=== PATIENT | female | born 1935 | race Asian ===

== ENCOUNTER 2023-09-12 23:41 | Inpatient (IN) | payer MEDICARE, BC, SELFPAY ==
[2023-09-12] VITALS (13 sets, daily range): BP systolic 126–183; BP diastolic 78–110; BMI 24.9
--- NOTE | 2023-09-12 21:08 | ED.MUSCINJ ---
HPI-Injury
<JORGE Gross - Last Filed: 09/13/23 01:03>
General
Chief Complaint: Musculo-Skeletal Complaint
Source: patient and family (Daughter)
Exam Limitations: none
Time Seen by Provider: 09/12/23 20:54
Travel History
Have you had any contact with someone who has COVID-19?: No
Do you have any symptoms of coronavirus? Fever > 100 degrees, chills, cough, shortness of breath, sore throat, loss of taste or smell, muscle aches, or headache?: No
History of Present Illness-Injury
Is this injury a work related problem?: No
Is pt an associate of [facility]?: No
Initial Injury comments:
This is a 88 year old female that comes in with c/o bilateral wrist pain. States that her shoe got caught and she fell forward. States that she put her arms out to prevent her from hitting her head. States that she did not hit her head or have any
LOC. State that the left wrist is worse then the right but both hurt. Denies any fever, chills, chest pain, SOB, abd pain, nausea, vomiting, diarrhea, headache, dizziness, urinary burning.
Past History
<JORGE Gross - Last Filed: 09/13/23 01:03>
Past History
ED Past Medical History: HTN and Other (Low back pain, Osteoporotis)
ED Past Surgical History: Appendectomy, Orthopedic (Bilateral hip replacement, ) and Other (Bilateral cataracts, )
Social History
Tobacco: Non-smoker
Alcohol: None
Personal:
Living: alone
Review of Systems
<JORGE Gross - Last Filed: 09/13/23 01:03>
Review of Systems
All Other Systems: ROS reviewed and negative except as documented in HPI and ROS
Constitutional: Reports no symptoms; Denies fever or chills
EENT: Reports no symptoms
Respiratory: Reports no symptoms; Denies cough or trouble breathing
Cardiac: Reports no symptoms; Denies chest pain
ABD/GI: Reports no symptoms; Denies abdominal pain, nausea, vomiting or diarrhea
: Reports no symptoms; Denies dysuria, frequency or urgency
Musculoskeletal: Reports joint pain (Right and left wrist pain)
Skin: Reports no symptoms
Neurological: Reports no symptoms; Denies dizzy or headache
Psychiatric: Reports no symptoms
Musculoskeletal Injury Exam
<JORGE Gross - Last Filed: 09/13/23 01:03>
Musculoskeletal Injury Exam
Right Wrist:
Pain with Movement?: Moderate
Tender to palpation?: Moderate
Soft tissue swelling?: Mild
External deformity and angulation?: Mild
Joint effusion?: None
Contusion?: None
Hematoma-local bleeding into tissue?: None
Strain- Sprain- Tear (Connective tissue injury)?: None
Crepitus with movement?: No
Malalignment/deformity?: Yes (Slight)
Range of motion: Limited (Due to pain)
Distal skin color and temperature: normal-warm & good color
Capillary Refill: normal
Normal distal neurovascular exam?: Yes
Left Wrist:
Pain with Movement?: Moderate
Tender to palpation?: Moderate
Soft tissue swelling?: Mild
External deformity and angulation?: Moderate
Joint effusion?: None
Contusion?: None
Hematoma-local bleeding into tissue?: None
Strain- Sprain- Tear (Connective tissue injury)?: None
Crepitus with movement?: No
Joint instability?: Yes
Malalignment/deformity?: Yes
Range of motion: Limited
Distal skin color and temperature: normal-warm & good color
Capillary Refill: normal
Normal distal neurovascular exam?: Yes
Phy Exam
<JORGE Gross - Last Filed: 09/13/23 01:03>
General Physical Exam
General Presentation: mild distress
General age: appears stated age
General Skin: warm and dry
General Habitus: elderly
General Mental: alert
General Hydration: appears well hydrated
ENT Exam
ENT Exam: TM's normal, pharynx normal and neck supple
Eye Exam
Eye Exam: EOMI
Cardiovascular Exam
Cardiovascular Exam: regular rate/rhythm, no edema and normal peripheral pulses
Pulmonary Exam
Pulmonary Exam: lungs clear, no respiratory distress, no rales, chest non tender, no crackles, no rhonchi, no wheezing and no cough
Gastrointestinal Exam
Gastrointestinal Exam: normal bowel sounds, non tender, soft, no organomegaly, no pulsatile mass and non distended
Musculoskeletal Exam
Musculoskeletal Exam: other (Bilateral wrist deformity. Left >R.)
Skin Exam
Skin Exam: normal color, warm/dry, no rash, no petechia and other (Small open area on the left wirst on the lateral aspect. )
Psychiatric Exam
Psychiatric Exam: normal mood/affect
Injury Course
<JORGE Gross - Last Filed: 09/13/23 01:03>
Orders/Labs/Results
Orders:
Orders
09/12/23 21:07
CR Wrist - Left Min 2 Views Urgent
Reason For Exam: Fall, Deformity, pain
Wrist, Right 3 Views [CR Wrist - Right Min 3 Views] Urgent
Comment:
Reason For Exam: Fall, Deformiaty
09/12/23 21:09
Morphine Sulfate 2 mg IV NOW STA
Ondansetron Injectable [Zofran] 4 mg IV NOW STA
09/12/23 22:42
CeFAZolin 1 GRAM [Ancef] 1 gram in 5 ml IV NOW
09/12/23 22:45
Gentamicin 80 mg/50 ml [Gentamicin] 80 mg in 50 ml IV NOW
09/12/23 22:55
Consult Orthopedic [ORTHOPEDIC CONSULT] Urgent
Consulting Provider: Aakash Meyer
Was physician already notified: Yes
09/12/23 22:56
ECG [Electrocardiogram (*1)] Urgent
Reason for Study: PreOp
09/12/23 22:59
CBC/With Diff [Complete Blood Count/With Diff] Stat
CMP [Comprehensive Metabolic Panel] Stat
09/12/23 23:08
Admit/Transfer Patient As Directed
Co-Sign Provider:
Level of Care: Inpatient admission
Assign to:: Medical/Surgical
Physician / Group: Rosemary
Diagnosis: Bilateral Wrist Fractures
Reason for Hospitalization: Wrist ORIF
Expected length of stay greater than two midnights?: Yes
ELOS- Estimated Length of Stay in days: 3
I certify the patient meets the requirements for IP care: Yes
09/12/23 23:09
Code Status As Directed
Resuscitation Status: Full Code
09/12/23 23:19
Propofol [Diprivan] 20 ml .ROUTE .STK-MED
Abnormal Lab Results
09/12/23
22:59
RBC 3.99 L 10^6/uL
(4.20-5.40)
MCH 33.1 H pg
(27.0-31.0)
Lymphocytes % 17.4 L %
(20.5-51.1)
Glucose 102 H mg/dl
(70-99)
Alkaline Phosphatase 145 H U/L
(38-126)
09/12/23 22:59
09/12/23 22:59
Glucose nonfasting. ALk phos elevated
samreen;Carlos Irvin DO - Last Filed: 09/12/23 23:55>
Orders/Labs/Results
Orders:
Orders
09/12/23 21:07
CR Wrist - Left Min 2 Views Urgent
Reason For Exam: Fall, Deformity, pain
Wrist, Right 3 Views [CR Wrist - Right Min 3 Views] Urgent
Comment:
Reason For Exam: Fall, Deformiaty
09/12/23 21:09
Morphine Sulfate 2 mg IV NOW STA
Ondansetron Injectable [Zofran] 4 mg IV NOW STA
09/12/23 22:42
CeFAZolin 1 GRAM [Ancef] 1 gram in 5 ml IV NOW
09/12/23 22:45
Gentamicin 80 mg/50 ml [Gentamicin] 80 mg in 50 ml IV NOW
09/12/23 22:55
Consult Orthopedic [ORTHOPEDIC CONSULT] Urgent
Consulting Provider: Aakash Meyer
Was physician already notified: Yes
09/12/23 22:56
ECG [Electrocardiogram (*1)] Urgent
Reason for Study: PreOp
09/12/23 22:59
CBC/With Diff [Complete Blood Count/With Diff] Stat
CMP [Comprehensive Metabolic Panel] Stat
09/12/23 23:08
Admit/Transfer Patient As Directed
Co-Sign Provider:
Level of Care: Inpatient admission
Assign to:: Medical/Surgical
Physician / Group: Rosemary
Diagnosis: Bilateral Wrist Fractures
Reason for Hospitalization: Wrist ORIF
Expected length of stay greater than two midnights?: Yes
ELOS- Estimated Length of Stay in days: 3
I certify the patient meets the requirements for IP care: Yes
09/12/23 23:09
Code Status As Directed
Resuscitation Status: Full Code
09/12/23 23:19
Propofol [Diprivan] 20 ml .ROUTE .STK-MED
Abnormal Lab Results
09/12/23
22:59
RBC 3.99 L 10^6/uL
(4.20-5.40)
MCH 33.1 H pg
(27.0-31.0)
Lymphocytes % 17.4 L %
(20.5-51.1)
Glucose 102 H mg/dl
(70-99)
Alkaline Phosphatase 145 H U/L
(38-126)
09/12/23 22:59
09/12/23 22:59
Procedures
<JORGE Gross - Last Filed: 09/13/23 01:03>
Moderate Sedation
ASA Risk Score: Class I
Chart and allergies reviewed: Yes
Consent for anesthesia obtained: Yes
Time out completed (validating right patient & procedure): Yes
History of difficult intubation: No
Airway free of obstruction: Yes
Patient has a gag reflex: Yes
Patient is able to open mouth: Yes
Patient has no dentures: No
Patient has no loose teeth: No
Medication administered by Provider during Moderate Sedation: IV Propofol (mg)
Total dose administered: 50
Time drug administered: 23:37
Start Time: 23:37
Stop Time: 23:48
Comment: patient given Propofol 30mg first and then another 20 mg at 23:42
<JORGE Gross - Last Filed: 09/13/23 01:03>
MDM/Problems Addressed
Differential Diagnosis Includes:
Bilateral wrist fractures. Left open fracture
MDM/Problems Addressed:
This is a 88 year old female that states that she put her arms out when she was falling to prevent hitting her head. States that she has pain in both wrist but the left is worse then the right.
Will get X-ray or both wrist.
Back into see patient and daughter. Explained that the right wrist if a fracture radius. The left she has fracture both the radium and the Ulna. The left is an open fracture and will need antibiotics. Message sent to Dr. Meyer and await his
response.
Spoke with Dr. Meyer and will splint both wrist and attempt to reduce the left and cover open area with Betadine soaked gauze. Will also add gent to antibiotics. Daughter states that her mothers tetanus is up to date. Dr. Meyer states that DrRain
Catarina will do Surgery tomorrow to fix both wrist.
Conscious sedation given. Patient tolerated procedure well and both wrist are splinted. Will get Post reduction film.
Post reduction film slightly improved. Patient fo OR in the morning.
Chronic conditions affecting care:
NA
Acute Exacerbation and/or Progression of Chronic Illness:
NA
<JORGE Gross - Last Filed: 09/13/23 01:03>
*Radiology
Radiology exam reviewed: radiology read reviewed (Left wrist- Complete displacement angulated fracture of the distal left radius and ulna including comminution of the Radius fracture. Approximately 1-2 shaft width radial sided displacement of the
fractures. No intra-articular extension or dislocation. Chondrocalcinosis of the wrist. Diffuse ), all reviewed NAD by ED Provider (X-ray cont-Demineralization. Moderate to severe degenerative changes of the visualized carpal joints. Soft tissue
swelling about the wrist. Right: impacted nondisplaced comminuted fracture of the distal right radius metaphysis. No definite intra-articular extension. No dislocation. Probable old) and other (X-ray cont- old Ulnar styloid injury. Diffuse
demineralization. Moderate to severe degenerative changes of the visualized joints. Soft tissue swelling about the wrist. )
*Pulse Oximetry
Patient hypoxic: no
*EKG
Interpreted by ED Provider?: Yes
Heart Rate: 72
Rate: normal
Rhythm: sinus
[place]: left axis deviation
Interval: normal interval
QRS Pattern: normal QRS
Ischemia: no ischemia (Checked by Dr. Irvin)
*Whipper Interpretation
Rate: Whipper- N/A
*Critical Care Note
Total Time (30-74mins, 75-104mins- exclusive of procedures): Not Applicable
ED Attending Note
<JORGE Gross - Last Filed: 09/13/23 01:03>
-
Portions of this chart may have been created with voice recognition software.� Occasional wrong word or��sound alike� substitutions may have occurred due to the inherent limitations of voice recognition software.
<Carlos Irvin DO - Last Filed: 09/12/23 23:55>
ED Attending Note
Patient seen and examined by attending physician: Yes
I performed the substantive portion of visit, reviewed & personally made and approve the management plan that is documented in note by myself or DOYLE.: Yes
ED Attending Note:
I agree with Stephanie's note
Patient fall on outstretched arms. She has pain in both wrist. Left wrist obviously deformed.
Physical exam
Left wrist has swelling and obvious deformity. left hand has good capillary refill, good sensation, movement of the fingers though with pain. There is a laceration noted on the ulnar aspect of the left forearm suggestive of a open fracture.
Right wrist tender to palpation, mild swelling.
X-rays obtained. Comminuted and markedly displaced fracture noted the left wrist both ulna and radius. Right distal radius fracture.
Given the extensive nature of the placement in the left wrist and the fact an open fracture orthopedic surgery was contacted by phone. He request that we agreed to use the wrist as best as possible and immobilize it. This was performed. The site
of the open fracture was dressed with a Betadine soaked gauze.
The left hand was grasped pulled to straighten the radius is much as possible. Manual palpation and pressure was used to straighten somewhat. A sugar-tong splint was placed and the bony alignment manually held in place is much as possible while an
ulnar gutter splint was placed and dried.
Procedural sedation was used with this. Please see bodies note for procedural sedation for
Discharge Plan
Departure
Patient Disposition: Admit
Date of Disposition: 09/12/23
Time of Disposition: 22:56
Admit to: Med/Surg
Presentation/result/management discussed w/ accepting MD/DO: Hospitalist
Patient with high blood pressure during this ER visit?: Yes
Condition: Good
Covid-19: Not Applicable
Discharge Problem:
Right and left wrist fracture
Interventions
Interventions:
*Risk Screen - Suicide Last Done: 09/12/23 20:27
*General Assessment Last Done: 09/12/23 21:27
*Neglect/Abuse Screening Last Done: 09/12/23 20:27
*ED COVID-19 Vaccine History Last Done: 09/12/23 21:27
ED-Musculoskeletal Assessment Last Done: 09/12/23 21:27
ED- Neurological Assessment Last Done: 09/12/23 21:27
ED-Skin Assessment Last Done: 09/12/23 21:27
[2023-09-12] MEDS: ZOFRAN 4 MG IV (21:20)
[2023-09-12] MEDS: MORPHINE SULFATE 2 MG IV (21:20)
--- NOTE | 2023-09-12 22:58 | HPS.HSE ---
Family Physician
-
Family Physician: Teddy Kenny
Chief Complaint
-
Mechanical fall
History of Present Illness
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
fracture, very pleasant and currently looks calm and comfortable complained of mild discomfort specially received some pain medication and recommending any symptoms prior to the fall like dizziness or chest pain or vision change or nausea or
vomiting or palpitation.
Ortho been contacted and given to patient to be n.p.o. after midnight receiving biotic and plan for OR tomorrow. Blood pressures been elevated admits she did not take her blood pressure medication earlier, she has losartan she breaks in half and
takes to have twice a day while carvedilol 3.125 she takes it once a day instead of 2.
Medical History
Past Medical History
Past Medical History: Reports Other
Additional Past Medical History:
Past medical history reviewed:
Hypertension
Social history:
Lives with family independently, her is a retired cardiovascular surgeon, no smoking alcohol use.
Family history: Reviewed and noncontributory
Past Surgical History: Reports Other
Social History
Unable to obtain full social history at this time due to: Other
Family History
Family History: Other
Allergies / Home Medications
Allergies reflects when Allergies were last updated in [employer]
Home Medications with original date entered in [employer]
Allergy/Medication List:
Allergies
Allergy/AdvReac Type Severity Reaction Status Date / Time
morphine Allergy Nausea Verified 09/12/23 20:31
adhesive tape AdvReac Mild Rash Verified 09/12/23 20:31
Home Medications
carvedilol 3.125 mg tablet 3.125 mg PO BID 09/12/23
losartan 50 mg tablet 50 mg PO DAILY 09/12/23
Review of Systems
-
A 12 point ROS was completed and negative except as noted: Yes
Physical Exam
Vital Signs
Vital Signs
Temp Pulse Resp BP Pulse Ox
98.9 F 72 24 183/97 98
09/12/23 20:27 09/12/23 20:27 09/12/23 20:27 09/12/23 22:00 09/12/23 22:00
Physical exam:
General: Awake, alert and oriented x3, not in distress and holds appropriate conversation.
HEENT: No active discharge, ecchymosis or bruising, moist lips, tongue and mucous membrane.
Eyes: No discharge or red conjunctiva, no nystagmus, pupils are reactive and equal
Neck:Supple, no JVD no bruit no goiter.
Respiratory: Normal AP contour and diameter, normal chest wall movement, normal respiratory effort, no respiratory distress,
Lungs: Good air entry bilaterally, no wheezing or rhonchi, no rales or crackles
Heart: S1, S2 regular, normal rate, systolic murmur in the right upper border, no radiation around 2/6
Gastrointestinal: Positive bowel sounds, soft, nontender, no guarding or rigidity or organomegaly
Musculoskeletal: , no chest wall abnormality or tenderness. Evidence of both wrist fracture with limitation of movement, all other joints and extremities have good range of motion, no muscle tenderness or any joint swelling or tenderness.
Extremities: Both wrists specially the left has deformity, limitation movement of the both wrists and hand,, good peripheral pulses, good range of motion
Skin: Warm and dry, no ulceration, normal color.
Neurological: Awake, alert and oriented x3, no facial droop, normal mentation. Moves lower extremities freely holding upper extremities crossing her body because of the fracture
Psychiatric: Normal mood, normal thought and judgment, normal affect,
Physical Exam
General: Other
Laboratory Results
-
Bilateral wrist x-ray:
LEFT: Complete displacement angulated fractures of the distal left radius and ulna including comminution of the radius fracture. Approximately 1-2 shaft width radial sided displacement of the fractures. No intra-articular extension or dislocation.
Chondrocalcinosis of the wrist. Diffuse demineralization. Moderate to severe degenerative changes of the visualized carpal joints. Soft tissue swelling about the wrist.
RIGHT: Impacted nondisplaced comminuted fracture of the distal right radius metaphysis. No definite intra-articular extension. No dislocation. Probable old ulnar styloid injury. Diffuse demineralization. Moderate to severe degenerative changes of
the visualized joints. Soft tissue swelling about the wrist.
Data Reviewed
-
Diagnostic Radiology: Image Personally Visualized and interpreted, Discussed with Patient and Discussed with Family
Lab Data: Labs Reviewed by me, Discussed with Patient and Discussed with Family
Impression/Plan
-
IMPRESSION:
88 old female presented to the hospital complaining of both wrist pain after she had a mechanical fall and try to protect herself by outstretched both hands will lead to bilateral wrist fracture.
Mechanical fall
Bilateral wrist fracture
Elevated blood pressure with known history of hypertension, not been taking her blood pressure medication today.
Systolic murmur, patient and family aware of it and she has been following up regularly had an echo a year ago and was told nothing major.
PLAN:
ER plan to reduce and splint both wrists now
After n.p.o. after midnight
Prophylactic antibiotic
Pain medication
Advised about taking medication regularly and compliant with close monitoring of the blood pressure.
Continue losartan
Carvedilol
IV fluid
Pain medication
Ortho consult and defer further workup to Ortho.
All discussed with the patient and the family
CODE STATUS full code
DVT prophylaxis SCD
[2023-09-12 23:04] LABS: % Basophils 0.7 % (0-2); % Eosinophils 2.4 % (0-6); % Immature Granulocytes 0.5 % (0-0.5); % Lymphocytes 17.4 % (20.5-51.1); Absolute Basophils 0.1 10^3/uL (0-0.2); Absolute Eosinophils 0.2 10^3/uL (0-0.7); Absolute Lymphocytes 1.3 10^3/uL (1.2-3.4); Absolute Monocytes 0.6 10^3/uL (0.1-0.6); Absolute Neutrophils 5.2 10^3/uL (1.4-6.5); Hematocrit 37.5 % (37.0-47.0); Hemoglobin 13.2 g/dL (12.0-16.0); Mean Corp Hgb Conc. 35.2 g/dL (33.0-37.0); Mean Corpuscular Hgb 33.1 pg (27.0-31.0); Mean Platelet Volume 9.2 fL (7.4-10.4); Nucleated Red Blood Cells % 0 %; Platelet Count 243 10^3/uL (130-400); Red Blood Cell Count 3.99 10^6/uL (4.20-5.40); Red Cell Dist. Width 11.8 % (11.5-14.5); White Blood Cell Count 7.4 10^3/uL (4.8-10.8)
[2023-09-12] MEDS: ANCEF 5 IV (23:10)
[2023-09-12 23:24] LABS: ALT (SGPT) 21 U/L (0-35); AST (SGOT) 33 U/L (14-36); Albumin 4.2 g/dl (3.5-5.0); Alkaline Phosphatase 145 U/L (38-126); Blood Urea Nitrogen 16 mg/dl (7-17); Calcium 9.2 mg/dl (8.4-10.2); Carbon Dioxide 22 mmol/L (22-30); Chloride 107 mmol/L (98-107); Estimated Creatinine Clearance 47 ml/min; Glucose 102 mg/dl (70-99); Potassium 4.3 mmol/L (3.5-5.1); Sodium 135 mmol/L (135-145); Total Bilirubin 0.5 mg/dl (0.2-1.3); Total Protein 7.2 g/dl (6.3-8.2); eGFR > 60.00
[2023-09-13] VITALS (16 sets, daily range): BP systolic 141–169; BP diastolic 70–98; BMI 24.6
[2023-09-13] MEDS: GENTAMICIN 50 IV (00:12)
[2023-09-13] MEDS: COLACE 100 MG PO ×3 (02:18→20:08)
[2023-09-13] MEDS: SENOKOT 17.1999999999999993 MG PO ×3 (02:18→20:08)
[2023-09-13] MEDS: D5/0.9% SODIUM CHLORIDE 1000 IV ×2 (02:25→11:40)
--- NOTE | 2023-09-13 05:10 | PTCARENOTE ---
Pt came from ED AOx3. Morphine given 2mg in ED, pt declined pain medication on the unit. Pt sustained b/l wrist fractures, OR contacted, pt made NPO for surgery. Pt in no acute distress. Pt was unable to use the call light, touch pad given and used
by pt. Safety precaution by age.
[2023-09-13] MEDS: COZAAR 50 MG PO (08:17)
[2023-09-13] MEDS: TYLENOL 1000 MG PO ×2 (08:17→21:23)
[2023-09-13] MEDS: DILAUDID 0.25 MG IV (08:18)
[2023-09-13] MEDS: COREG 3.125 MG PO ×2 (08:18→20:08)
--- NOTE | 2023-09-13 08:56 | W.PN.UPDATE ---
Update Note
Progress Note Update
Patient seen on AM rounds. Full consult note to follow.
Patient with bilateral distal radius fractures and left ulna fractures. We recommend proceeding with open reduction internal fixation of both of her wrist fractures. We plan to proceed with this later today under the direction of Dr. Elmore. Surgical
and blood consents signed and placed in patient chart.
--NPO until surgery.
--Continue with immobilization in splints until surgery.
--Non-weight bearing to bilateral upper extremities.
--Continue pain management per primary.
--- NOTE | 2023-09-13 10:19 | CON.ORTHO ---
Consultation
-
Date/Time Consultation Requested: 09/12/2023; time unknown
Date/Time Consultation Performed: 09/13/2023; 0700
Requesting Provider: Unknown
Performing Provider: Cecily Kendrick PA-C / Dr. Aakash Meyer
Reason for Consultation: Bilateral wrist fractures
Consultation - Orthopedics
History
Ms. Blanco is an 88 year old female with PMH of HTN and osteoporosis seen today for evaluation of bilateral wrist fractures. She reports she tripped at home and fell with both of her arms outstretched in front of her. She reports immediate onset of
pain. She called her daughter who brought her to ED where x-rays were obtained. She was placed in bilateral wrist splints in the ED. She did sustain an open fracture of her left wrist. This was cleaned in the ED and she has been on gentamicin.
She reports her pain is well controlled at present. She denies treatment for her hand or wrists in the past.
She lives independently in a alf community, but her daughter does live locally. She denies PMH of blood clot, stroke, heart attack or DM.
Allergies / Home Medications
Allergy/AdvReac Type Severity Reaction Status Date / Time
morphine Allergy Nausea Verified 09/12/23 20:31
adhesive tape AdvReac Mild Rash Verified 09/12/23 20:31
�Medication �Instructions �Recorded
carvedilol 3.125 mg tablet 3.125 mg PO BID 09/12/23
losartan 50 mg tablet 50 mg PO DAILY 09/12/23
Vital Signs / Lab Results
Temp Pulse Resp BP Pulse Ox
98.7 F 71 14 156/81 99
09/13/23 07:14 09/13/23 08:18 09/13/23 07:14 09/13/23 08:18 09/13/23 07:14
09/12/23 22:59
09/12/23 22:59
XR Bilateral Wrists 09/12/2023 IMPRESSION:
LEFT: Complete displacement angulated fractures of the distal left radius and ulna including comminution of the radius fracture. Approximately 1-2 shaft width radial sided displacement of the fractures. No intra-articular extension or dislocation.
Chondrocalcinosis of the wrist. Diffuse demineralization. Moderate to severe degenerative changes of the visualized carpal joints. Soft tissue swelling about the wrist.
RIGHT: Impacted nondisplaced comminuted fracture of the distal right radius metaphysis. No definite intra-articular extension. No dislocation. Probable old ulnar styloid injury. Diffuse demineralization. Moderate to severe degenerative changes of
the visualized joints. Soft tissue swelling about the wrist.
Post-reduction XR Left Wrist 09/13/2023 independently interpreted by me reveal improved alignment of distal radius and ulna x-rays, but still with displacement of radius fragment.
Physical Exam:
General: pleasant female in NAD, AAOx3
Head: atraumatic, normocephalic
Eyes: sclera anicteric
Ears: normal hearing
Heart: no edema
Lungs: normal work of breathing, no audible wheezing
Bilateral wrists: short arm splints in place. Patient able to wiggle fingers bilaterally. Sensation intact to light touch above and below splints. Capillary refill <2 seconds.
Assessment / Plan
Right wrist distal radius fracture; Left wrist open distal radius and ulna fractures
--Unfortunately, Daphne sustained bilateral distal radius fractures and a left distal ulna fracture. We recommend proceeding with surgical fixation of both her wrists, and washout of her left wrist. The risks, benefits, alternatives, recovery
process and potential complications were discussed in detail. All patient questions were answered. Surgical and blood consents are signed and in the patient chart. We will proceed with surgery later today under the direction of Dr. Elmore.
--NPO until surgery.
--Continue with immobilization in splints until surgery.
--Non-weight bearing to bilateral upper extremities.
--Continue pain management per primary.
--2g Ancef pre-op ordered to OR.
--Please reach out with any additional orthopedic questions or concerns.
--- NOTE | 2023-09-13 12:13 | W.PN.HOSP.TC ---
Today's Communication/Plan
-
Monitor vital signs
see plan
Pain management
OR today
Assessment / Plan
Assessment / Plan
General: Awake, alert and oriented x3, not in distress
HEENT: anicteric,pink conjuctivae
Respiratory: Clear to auscultation, no wheezing
Heart: S1, S2 regular, normal rate, systolic murmur in the right upper border
Gastrointestinal: soft, nontender
Musculoskeletal: Evidence of both wrist fracture with limitation of movement, all other joints and extremities have good range of motion, no muscle tenderness or any joint swelling or tenderness.
Extremities: Both wrists specially the left has deformity, limitation movement of the both wrists and hand
Neurological: Awake, alert and oriented x3
Psychiatric: Normal mood
Acute traumatic Bilateral distal radius fracture and left ulna fractures status post fall
Likely exacerbated by osteoporosis
History of osteoporosis
Plan 4 OR 09/12
PT/OT after OR per orthopedics
History of hypertension
Continue Coreg, losartan
Add hydralazine as needed
Known systolic murmur
Follow-up outpatient
DVT prophylaxis
SCD's; post OP per ortho
Full code
Anticipated Discharge: 24 - 48 hours
Subjective/Interval History
-
Date of Service: September 13, 2023
Has pain
Objective Data
-
Vital Signs:
Vital Signs
Temp Pulse Resp BP Pulse Ox
98.7 F 71 14 156/81 99
09/13/23 07:14 09/13/23 08:18 09/13/23 07:14 09/13/23 08:18 09/13/23 07:14
I&O
09/12/23 09/13/23 09/14/23
06:59 06:59 06:59
Intake Total 750 / 750
Balance 750 / 750
--- NOTE | 2023-09-13 14:59 | CM ---
Initial assessment completed with patient, daughter and son-in-law. 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 She lived on the 1st floor. 2 steps to enter. She was independent and drove. Daughter and son-in-law live 1 minute away. No HC
POA. DME is [facility] which she uses at night to go to and a standard walker from 10 years ago (hip surgery). No in-home services. After discharge, patient will live with her daughter at [address] [place] [address]. There are 2 steps
into daughter's home and 4 steps with rail in the house to where patient will live Daughter and son-in-law will care for patient. Family is requesting HH services with HH. Referral will be forwarded. [facility]acy [facility] and PCP
is Dr. Teddy Kenny.
[2023-09-13] MEDS: APRESOLINE 5 MG IV (15:26)
[2023-09-13] MEDS: TYLENOL PO (15:31)
--- NOTE | 2023-09-13 18:16 | W.IMMPOSTOP ---
Surgical Immed Post Op Note
-
Primary Surgeon: Catarina
Pre-op Diagnosis:
Left distal radius open fracture, grade 1
Right distal radius fracture
Post-op Diagnosis:
Same
Procedure Performed:
Left wrist I&D
Bilateral distal radii ORIF
Anesthesia Type: General
Specimen / Cultures: None
Estimated Blood Loss: 2 cc
Complications: None
Operative Findings: Dictated [id number]
Plan:
- NWB B/L UE
- Keep splint and dressing intact
- Follow up in the office in 10-14 days
[2023-09-13] MEDS: SUBLIMAZE 50 MCG IV (18:40)
[2023-09-13] MEDS: SUBLIMAZE 25 MCG IV (18:59)
[2023-09-13] MEDS: ANCEF 5 IV (23:45)
[2023-09-13] MEDS: ROXICODONE 2.5 MG PO (23:57)
[2023-09-14] MEDS: D5/0.9% SODIUM CHLORIDE 1000 IV (02:07)
[2023-09-14 03:35] VITALS: BP 134/68
[2023-09-14 05:55] LABS: % Basophils 0.1 % (0-2); % Immature Granulocytes 0.4 % (0-0.5); % Monocytes 9.6 % (1.7-9.3); % Neutrophils 79.9 % (42.2-75.2); Absolute Lymphocytes 0.8 10^3/uL (1.2-3.4); Absolute Monocytes 0.8 10^3/uL (0.1-0.6); Absolute Neutrophils 6.2 10^3/uL (1.4-6.5); Hematocrit 31.1 % (37.0-47.0); Hemoglobin 10.6 g/dL (12.0-16.0); Mean Corp Hgb Conc. 34.1 g/dL (33.0-37.0); Mean Corpuscular Hgb 33.3 pg (27.0-31.0); Mean Corpuscular Volume 97.8 fL (81.0-99.0); Nucleated Red Blood Cells % 0 %; Platelet Count 178 10^3/uL (130-400); Red Blood Cell Count 3.18 10^6/uL (4.20-5.40); Red Cell Dist. Width 11.9 % (11.5-14.5); White Blood Cell Count 7.8 10^3/uL (4.8-10.8)
[2023-09-14 06:24] LABS: Blood Urea Nitrogen 12 mg/dl (7-17); Calcium 8.5 mg/dl (8.4-10.2); Carbon Dioxide 23 mmol/L (22-30); Chloride 107 mmol/L (98-107); Estimated Creatinine Clearance 47 ml/min; Glucose 139 mg/dl (70-99); Potassium 3.8 mmol/L (3.5-5.1); Sodium 137 mmol/L (135-145); eGFR > 60.00
[2023-09-14 07:35] VITALS: BP 138/75
--- NOTE | 2023-09-14 08:07 | W.PN.ORTHO ---
Today's Communication / Plan
-
88 yo F POD1 left wrist I&D, ORIF bilateral distal radii fractures under the direction of Dr. Elmore
--Continue with immobilization in short arm splints. Splints to remain in place until 2 weeks post-op.
--Non weight bearing to bilateral upper extremities.
--Continue current pain management regimen. Ice and elevation for edema control.
--Keflex 500 mg QID x7 days post-op given open fracture.
--Patient will follow up outpatient at 2 weeks post-op for suture removal and repeat x-rays.
Assessment
.
Distal Motor Intact: Yes
Dressing:
Clean, dry and intact.
Plan
.
Surgery / Date: Bilateral ORIF distal radii fracture, L wrist I&D
Activity:
Out of bed.
PT/OT
Subjective
.
.:
Ms. Blanco is POD1 following her left wrist I&D and ORIF bilateral distal radii fractures performed by Dr. lEmore. She is resting comfortably in bed this morning, and reports her pain is much improved.
Vital Signs and Labs
.
Vital Signs and Labs:
Lab Results
09/14/23 05:16
09/14/23 05:16
Temp Pulse Resp BP Pulse Ox
97.6 F 59 16 134/68 97
09/14/23 03:35 09/14/23 03:35 09/14/23 03:35 09/14/23 03:35 09/14/23 03:35
Physical Exam
-
Directed exam of bilateral wrists reveals short arm splints in place. Good color of fingers bilaterally. Generalized edema throughout both hands. Patient able to wiggle fingers. Sensation intact to light touch. Capillary refill <2 seconds.
[2023-09-14] MEDS: COZAAR 50 MG PO (08:51)
[2023-09-14] MEDS: TYLENOL 1000 MG PO ×3 (08:51→22:32)
[2023-09-14] MEDS: SENOKOT 17.1999999999999993 MG PO (08:51)
[2023-09-14] MEDS: COREG 3.125 MG PO ×2 (08:51→20:23)
[2023-09-14] MEDS: COLACE 100 MG PO (08:52)
[2023-09-14] MEDS: ANCEF 5 IV (08:52)
--- NOTE | 2023-09-14 10:51 | W.PN.HOSP.TC ---
Today's Communication/Plan
-
monitor vitals
see plan
pain control
PT/OT
laxatives
abx
Assessment / Plan
Assessment / Plan
General: Awake, alert and oriented x3, not in distress
HEENT: anicteric,pink conjuctivae
Respiratory: Clear to auscultation, no wheezing
Heart: S1, S2 regular, normal rate, systolic murmur in the right upper border
Gastrointestinal: soft, nontender
Musculoskeletal: Evidence of both wrist fracture with limitation of movement, all other joints and extremities have good range of motion, no muscle tenderness or any joint swelling or tenderness.
Extremities: Both wrists specially the left has deformity, limitation movement of the both wrists and hand; splint b/l UE
Neurological: Awake, alert and oriented x3
Psychiatric: Normal mood
Acute traumatic Bilateral distal radius fracture and left ulna fractures status post fall
Likely exacerbated by osteoporosis
History of osteoporosis
s/p OR 4/8 left wrist I&D, ORIF bilateral distal radii fractures
PT/OT; Continue with immobilization in short arm splints. Splints to remain in place until 2 weeks post-op.
--Non weight bearing to bilateral upper extremities.
History of hypertension
Continue Coreg, losartan
Add hydralazine as needed
Known systolic murmur
Follow-up outpatient
DVT prophylaxis
SCD's; post OP per ortho
Full code
Anticipated Discharge: Within 24 hours
Subjective/Interval History
-
Date of Service: September 14, 2023
has some pain
Objective Data
-
Labs:
Laboratory Results
09/14/23
05:16
WBC 7.8
Hgb 10.6 L
Hct 31.1 L
Plt Count 178 D
Sodium 137
Potassium 3.8
Chloride 107
Carbon Dioxide 23
BUN 12
Creatinine 0.5 L
Glucose 139 H
Calcium 8.5
Vital Signs:
Vital Signs
Temp Pulse Resp BP Pulse Ox
98.2 F 65 18 138/75 98
09/14/23 07:35 09/14/23 07:35 09/14/23 07:35 09/14/23 08:51 09/14/23 07:35
I&O
09/13/23 09/14/23 09/15/23
06:59 06:59 06:59
Intake Total 750 / 750 100 / 100
Balance 750 / 750 100 / 100
[2023-09-14] MEDS: D5/0.9% SODIUM CHLORIDE IV (11:23)
[2023-09-14 12:33] VITALS: BP 144/70; PULSE 65; O2SAT 100
[2023-09-14] MEDS: KEFLEX 500 MG PO ×3 (13:13→22:32)
--- NOTE | 2023-09-14 14:33 | CM ---
Addendum entered by Josy Pathak 09/14/23 14:37:
Referral to [facility] previously forwarded for PT/OT and VN.
Original Note:
Daughter intended on taking patient home after discharge. She cared for her after hip surgery and wanted her home with her again. She and her can provide 24/7 care. Therapy has recommended SNF. Will discuss with daughter and provide
Medicare[employer] list if amenable to SNF.
[2023-09-14 17:00] VITALS: BP 128/70
[2023-09-14 19:53] VITALS: BP 146/80
[2023-09-14] MEDS: SENOKOT PO (20:23)
[2023-09-14] MEDS: COLACE PO (20:23)
[2023-09-14 23:11] VITALS: BP 144/62
--- NOTE | 2023-09-15 04:30 | PTCARENOTE ---
Patient had 1 large loose green bowel movement (bedpan and incontinent) and 1 large liquid yellow bowel movement (bedpan and incontinent) during this nightshift; patient had refused both Colace and Senokot at beginning of nightshift as she stated
she had loose bowel movements during dayshift.
[2023-09-15 04:56] LABS: % Basophils 0.6 % (0-2); % Eosinophils 1.8 % (0-6); % Immature Granulocytes 0.5 % (0-0.5); % Lymphocytes 20.9 % (20.5-51.1); % Monocytes 13.3 % (1.7-9.3); % Neutrophils 62.9 % (42.2-75.2); Absolute Basophils 0.1 10^3/uL (0-0.2); Absolute Eosinophils 0.1 10^3/uL (0-0.7); Absolute Lymphocytes 1.7 10^3/uL (1.2-3.4); Absolute Monocytes 1.1 10^3/uL (0.1-0.6); Hematocrit 29.9 % (37.0-47.0); Hemoglobin 10.8 g/dL (12.0-16.0); Mean Corp Hgb Conc. 36.1 g/dL (33.0-37.0); Mean Corpuscular Hgb 34.4 pg (27.0-31.0); Mean Corpuscular Volume 95.2 fL (81.0-99.0); Mean Platelet Volume 9.2 fL (7.4-10.4); Nucleated Red Blood Cells % 0 %; Platelet Count 206 10^3/uL (130-400); Red Blood Cell Count 3.14 10^6/uL (4.20-5.40); Red Cell Dist. Width 12.2 % (11.5-14.5)
[2023-09-15 05:22] LABS: Blood Urea Nitrogen 13 mg/dl (7-17); Calcium 8.5 mg/dl (8.4-10.2); Carbon Dioxide 24 mmol/L (22-30); Chloride 111 mmol/L (98-107); Estimated Creatinine Clearance 47 ml/min; Glucose 93 mg/dl (70-99); Potassium 3.7 mmol/L (3.5-5.1); Sodium 137 mmol/L (135-145); eGFR > 60.00
[2023-09-15 07:30] VITALS: BP 147/85
[2023-09-15] MEDS: COZAAR 50 MG PO (08:30)
[2023-09-15] MEDS: SENOKOT PO (08:30)
[2023-09-15] MEDS: COLACE PO (08:30)
[2023-09-15] MEDS: TYLENOL 1000 MG PO (08:30)
[2023-09-15] MEDS: KEFLEX 500 MG PO ×2 (08:30→13:48)
[2023-09-15] MEDS: COREG 3.125 MG PO (08:30)
--- NOTE | 2023-09-15 10:06 | W.PN.UPDATE ---
Update Note
Progress Note Update
Ms. Blanco is POD2 following her left wrist I&D and bilateral wrist ORIF performed by Dr. Elmore. She is resting comfortably in bed at present. She reports her wrists are doing well, and her symptoms continue to improve with time.
Directed exam of bilateral wrist reveal surgical splints intact. Generalized edema throughout both hands, worse no left. Patient able to wiggle fingers. Sensation intact to light touch above and below splints. Cap refill <2 seconds.
88 yo F POD2 left wrist I&D, ORIF bilateral distal radii fractures under the direction of Dr. Elmore
--Continue with immobilization in short arm splints. Splints to remain in place until 2 weeks post-op.
--Non weight bearing to bilateral upper extremities. May utilize platform walker for ambulation. Sling as needed for comfort.
--Continue current pain management regimen. Ice and elevation for edema control.
--Keflex 500 mg QID x7 days post-op given open fracture.
--Patient will follow up outpatient at 2 weeks post-op for suture removal and repeat x-rays.
--D/c once medically stable.
--- NOTE | 2023-09-15 10:53 | W.PN.HOSP.TC ---
Today's Communication/Plan
-
monitor vitals
see plan
dc today
PT/OT recommending SNF however patient refusing. Has good support at home
Daughter updated over the phone
Time of discharge 38 minutes
Assessment / Plan
Assessment / Plan
General: Awake, alert and oriented x3, not in distress
HEENT: anicteric,pink conjuctivae
Respiratory: Clear to auscultation, no wheezing
Heart: S1, S2 regular, normal rate, systolic murmur in the right upper border
Gastrointestinal: soft, nontender
Musculoskeletal: Evidence of both wrist fracture with limitation of movement, all other joints and extremities have good range of motion, no muscle tenderness or any joint swelling or tenderness.
Extremities: Both wrists specially the left has deformity, limitation movement of the both wrists and hand; splint b/l UE
Neurological: Awake, alert and oriented x3
Psychiatric: Normal mood
Acute traumatic Bilateral distal radius fracture and left ulna fractures status post fall
Likely exacerbated by osteoporosis
History of osteoporosis
s/p OR 4/8 left wrist I&D, ORIF bilateral distal radii fractures
PT/OT; Continue with immobilization in short arm splints. Splints to remain in place until 2 weeks post-op.
--Non weight bearing to bilateral upper extremities. May utilize platform walker for ambulation. Sling as needed for comfort.
Keflex for 7 days.
Patient will follow-up with orthopedics outpatient
History of hypertension
Continue Coreg, losartan
Add hydralazine as needed
Known systolic murmur
Follow-up outpatient
DVT prophylaxis
SCD's; post OP per ortho
PT/OT recommending SNF however patient refusing. Has good support at home
Full code
Anticipated Discharge: Today
Subjective/Interval History
-
Date of Service: September 15, 2023
denies pain
Objective Data
-
Labs:
Laboratory Results
09/15/23
04:19
WBC 8.0
Hgb 10.8 L
Hct 29.9 L
Plt Count 206
Sodium 137
Potassium 3.7
Chloride 111 H
Carbon Dioxide 24
BUN 13
Creatinine 0.5 L
Glucose 93
Calcium 8.5
Vital Signs:
Vital Signs
Temp Pulse Resp BP Pulse Ox
97.7 F 60 18 147/85 96
09/15/23 07:30 09/15/23 08:30 09/15/23 07:30 09/15/23 08:30 09/15/23 07:30
I&O
09/14/23 09/15/23 09/16/23
06:59 06:59 06:59
Intake Total 100 / 100 2905 / 2905 120 / 120
Balance 100 / 100 2905 / 2905 120 / 120
--- NOTE | 2023-09-15 11:01 | W.DCSUMMARY ---
Discharge Summary
Discharge Data
Date of Admission: 09/12/23
Date of Discharge: 09/15/23
-
Pending Results: No
Hospital Course
88-year-old female with past medical history of hypertension, systolic murmur came to the hospital after a fall with acute traumatic bilateral distal radius fracture and left ulnar fracture. Patient was taken to the OR by orthopedics for left wrist
I&D and ORIF of bilateral distal radius fractures. Patient was seen by physical therapy postop and was recommended SNF however patient and family both decided that it would be better if patient goes home with home health. Given open fracture
patient was also started on Keflex. Per orthopedics recommendation. Since patient tolerated procedure well and her symptoms were improving, she was then discharged home with instructions to follow-up with all her physicians outpatient.
Discharge Plan
-
Patient Disposition: Home with Home Care
Discharge Diagnosis/Procedures: Acute traumatic bilateral distal radius fracture and left ulna fracture status post fall
Status post left wrist I&D, bilateral wrist ORIF
Condition: Fair
Diet: No restrictions
Activity: Other activity
Additional Activity: Non weight bearing to bilateral upper extremities. Platform walker Ok.
Driving Restrictions: Not until seen by your Dr
Bathing Restrictions: Splints must remain dry. Cover splints to bathe.
Activity Restrictions/Additional Instructions:
Continue with immobilization in short arm splints. Splints to remain in place until 2 weeks post-op.
--Non weight bearing to bilateral upper extremities.
--Continue current pain management regimen. Ice and elevation for edema control.
--Keflex 500 mg QID x7 days post-op given open fracture.
--Patient will follow up outpatient at 2 weeks post-op for suture removal and repeat x-rays.
Referrals:
Teddy Kenny MD [Family Provider] - in less than 1 week
Chris Elmore MD [Active] - in one to two weeks
Prescriptions:
New
acetaminophen [Tylenol Extra Strength] 500 mg Tablet
1,000 mg PO TID Qty: 0 0RF
cephalexin 500 mg Capsule
500 mg PO QID Qty: 24 0RF
docusate sodium 100 mg Capsule
100 mg PO BID PRN (Reason: Constipation) Qty: 30 0RF
oxycodone 5 mg Tablet
2.5 mg PO Q4HPRN PRN (Reason: Moderate to severe pain) Qty: 10 0RF
Continued
losartan 50 mg Tablet
50 mg PO DAILY
carvedilol 3.125 mg Tablet
3.125 mg PO BID
Discharge Orders:
Discharge Patient (As Directed); Ordered 09/15/23
Ordered By: Wilmer Crystal
Discharge Date and Time
Discharge Date/Time: 09/15/23 16:45
Print Language: SINGAPOREAN
[2023-09-15 15:54] VITALS: BP 142/82
[2023-09-15] MEDS: TYLENOL PO (17:04)
--- NOTE | 2023-09-15 17:27 | CM ---
Patient has been medically cleared for discharge to daughter's home with [facility] VN, PT/OT services. Family declined SNF services. Daughter and son-in-law will care for patient. Daughter's address is: [address] [place] [id number].
Daughter transported home.
== END 2023-09-15 16:45 | disposition home health service (06) | DRG 510 ==
LOC: 2 SOUTH 23:41
PROVIDERS: Orthopaedic Surgery; Physician Assistant Medical; ADMITTING PHYSICIAN Internal Medicine; ATTENDING PHYSICIAN Internal Medicine; CONSULT PHYSICIAN Orthopaedic Surgery; EMERGENCY PHYSICIAN Emergency Medicine; FAMILY PHYSICIAN Family Medicine
PROC: 0PSH04Z Reposition Right Radius with Internal Fixation Device, Open Approach (ICD-10-PCS; 2023-09-13)
PROC: 0PSJ04Z Reposition Left Radius with Internal Fixation Device, Open Approach (ICD-10-PCS; 2023-09-13)
DX: M80.832A Other osteoporosis with current pathological fracture, left forearm, initial encounter for fracture (principal); S52.502B Unspecified fracture of the lower end of left radius, initial encounter for open fracture type I or II; M80.831A Other osteoporosis with current pathological fracture, right forearm, initial encounter for fracture; W01.0XXA Fall on same level from slipping, tripping and stumbling without subsequent striking against object, initial encounter; I10 Essential (primary) hypertension; R01.1 Cardiac murmur, unspecified
CPT/HCPCS: 25565; 73100; 73110; 80048; 80053; 85025; 93005; 96374; 96375; 97116; 97163; 97167; 97530; 97535; 99152; 99285; C1713

== ENCOUNTER 2023-11-29 14:24 | Outpatient (RCR) | payer MEDICARE, BC, SELFPAY | END 2023-11-29 23:59 | disposition home or self-care (01) | LOC: ROT 14:24 | PROVIDERS: ATTENDING PHYSICIAN Orthopaedic Surgery; FAMILY PHYSICIAN Family Medicine | DX: S52.502D Unspecified fracture of the lower end of left radius, subsequent encounter for closed fracture with routine healing (principal); S52.501D Unspecified fracture of the lower end of right radius, subsequent encounter for closed fracture with routine healing; Z73.6 Limitation of activities due to disability | CPT/HCPCS: 97010; 97018; 97110; 97166; 97535 ==

== ENCOUNTER 2024-01-05 07:59 | Inpatient (IN) | payer MEDICARE, BC, SELFPAY ==
--- NOTE | 2023-12-22 09:22 | CM ---
Patient is scheduled for an elective L TKR on 01/05/24. Spoke with patient's daughter prior to surgery via telephone. Introduced role of Orthopedic Navigator. She reports that patient lives alone in a multi story home. There are two steps to enter
and then patient has a first floor set up. She currently functions independently. She uses a rolling walker at night. She also has a cane. She has had VN services through VN. PCP is Teddy Kenny.
Discussed orthopedic program and post surgical plans. Reviewed anticipated length of stay and that goal is for patient to return home at discharge. Also reviewed outpatient PT. Patient is in agreement with tentative plan and will go directly to
outpatient PT at [facility]. Daughter states that she lives very close to patient and will be available to provide support. She states that patient may come to her home at discharge initially.
Patient will complete online education.
Plan: Orthopedic Navigator will remain available to assist with the care of patient and will reassess discharge needs after surgery.
[2023-12-23 12:31] VITALS: BMI 24.1
[2023-12-23 14:17] LABS: Hematocrit 38.4 % (37.0-47.0); Hemoglobin 13.5 g/dL (12.0-16.0); Mean Corp Hgb Conc. 35.2 g/dL (33.0-37.0); Mean Corpuscular Hgb 32.9 pg (27.0-31.0); Mean Corpuscular Volume 93.7 fL (81.0-99.0); Mean Platelet Volume 8.9 fL (7.4-10.4); Platelet Count 279 10^3/uL (130-400); Red Cell Dist. Width 12.5 % (11.5-14.5); White Blood Cell Count 6.8 10^3/uL (4.8-10.8)
[2023-12-23 14:30] LABS: ALT (SGPT) 22 U/L (0-35); AST (SGOT) 32 U/L (14-36); Albumin 4.1 g/dl (3.5-5.0); Alkaline Phosphatase 127 U/L (38-126); Blood Urea Nitrogen 14 mg/dl (7-17); Calcium 9.8 mg/dl (8.4-10.2); Carbon Dioxide 26 mmol/L (22-30); Chloride 104 mmol/L (98-107); Estimated Creatinine Clearance 49 ml/min; Glucose 94 mg/dl (70-99); Potassium 4.4 mmol/L (3.5-5.1); Sodium 137 mmol/L (135-145); Total Bilirubin 0.8 mg/dl (0.2-1.3); Total Protein 6.9 g/dl (6.3-8.2); eGFR > 60.00
[2023-12-23 14:36] LABS: Glycohemoglobin (HgbA1c) 5.5 % (4.0-5.6)
--- NOTE | 2023-12-24 15:49 | PTCARENOTE ---
Abnormal EKG on 12/23/23. Dr. Verdin aware. No intervention needed.
[2024-01-03 11:33] VITALS: BMI 24.1
[2024-01-05] VITALS (12 sets, daily range): BP systolic 102–154; BP diastolic 62–91; PULSE 77; O2SAT 94
[2024-01-05] MEDS: TYLENOL 650 MG PO ×3 (08:30→23:30)
[2024-01-05] MEDS: CELEBREX 200 MG PO (08:30)
[2024-01-05] MEDS: NORMOSOL-R 1000 IV ×2 (08:30→12:00)
--- NOTE | 2024-01-05 09:58 | W.DS.TRANS ---
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
-
Discharge Instructions:
Sleep Apnea Risk Low
Discharge Diagnosis/Procedures L ENZO Munson 01/05/24
Diet As tolerated
Activity With Walker
Driving Restrictions No driving
Other Services PT
Instructions:
Stand-Alone Forms:
Changes to Home Medications: Yes
Discharge Medications:
DC Medications w/original date entered in [facility]
carvedilol 3.125 mg tablet 3.125 mg PO BID 09/12/23
losartan 50 mg tablet 50 mg PO DAILY 09/12/23
Anthromax 1 cap PO DAILY 12/29/23
Bone Restore 1 cap PO DAILY 12/29/23
CoQ-10 1 cap PO DAILY 12/29/23
Multivitamin Gummies 1 gum PO DAILY 12/29/23
[place] 3 1 cap PO DAILY 12/29/23
Vitamin B-12 1 cap PO DAILY 12/29/23
Vitamin D3 1 cap PO DAILY 12/29/23
amoxicillin 500 mg capsule 2,000 mg PO .1HR BEFORE DENTAL 12/29/23
calcium 1 cap PO DAILY 12/29/23
magnesium 1 cap PO DAILY 12/29/23
acetaminophen 325 mg capsule (Tylenol) 650 mg (2 x 325 mg) PO QID #2 caps 01/05/24
aspirin 325 mg tablet 325 mg PO DAILY blood clot prevention #1 tab 01/05/24
celecoxib 200 mg capsule 200 mg PO DAILY anti-inflammatory #14 caps 01/05/24
dexamethasone 4 mg tablet 4 mg PO BID inflammation #6 tabs 01/05/24
docusate sodium 100 mg capsule (Colace) 100 mg PO BID stool softner #1 cap 01/05/24
magnesium hydroxide 400 mg/5 mL oral suspension (Milk of Magnesia) 30 ml PO HS PRN Constipation #1 mL 01/05/24
ondansetron 4 mg disintegrating tablet 4 mg PO Q6H PRN n/v #20 tabs 01/05/24
sennosides 8.6 mg tablet (Senokot) 17.2 mg (2 x 8.6 mg) PO BID laxative #2 tabs 01/05/24
tramadol 50 mg tablet 50 mg PO Q6H PRN 1 tab moderate pain, 2 if severe #30 tabs 01/05/24
Home Medication Changes
celecoxib 200 mg capsule 200 mg PO DAILY anti-inflammatory #14 caps 01/05/24
dexamethasone 4 mg tablet 4 mg PO BID inflammation #6 tabs 01/05/24
ondansetron 4 mg disintegrating tablet 4 mg PO Q6H PRN n/v #20 tabs 01/05/24
tramadol 50 mg tablet 50 mg PO Q6H PRN 1 tab moderate pain, 2 if severe #30 tabs 01/05/24
Pending Results: No
[2024-01-05] MEDS: TYLENOL PO ×2 (12:00→19:41)
[2024-01-05] MEDS: ROXICODONE 5 MG PO (12:04)
--- NOTE | 2024-01-05 13:00 | PTCARENOTE ---
Received patient at 1300 from PACU. Patient AAOx3, no c/o pain. Call deras in reach, daughter at bedside.
[2024-01-05] MEDS: ASPIRIN 325 MG PO (18:10)
[2024-01-05] MEDS: BACTROBAN 2% OINTMENT 1 APPLIC NASAL (19:44)
[2024-01-05] MEDS: ANCEF 5 IV (19:44)
[2024-01-05] MEDS: DECADRON 4 MG PO (19:45)
[2024-01-05] MEDS: COREG PO (19:45)
[2024-01-05] MEDS: TORADOL 15 MG IV (19:45)
[2024-01-05] MEDS: COREG 3.125 MG PO (20:00)
[2024-01-05] MEDS: PEPCID 20 MG PO (22:11)
[2024-01-05] MEDS: ULTRAM 50 MG PO (22:17)
[2024-01-06 03:08] VITALS: BP 146/78
[2024-01-06] MEDS: ANCEF 5 IV (03:41)
[2024-01-06] MEDS: TYLENOL 650 MG PO ×2 (03:46→08:03)
[2024-01-06 07:37] VITALS: BP 154/78
[2024-01-06] MEDS: ASPIRIN 325 MG PO (08:03)
[2024-01-06] MEDS: COREG 3.125 MG PO (08:03)
[2024-01-06] MEDS: CELEBREX 200 MG PO (08:03)
[2024-01-06] MEDS: TORADOL 15 MG IV (08:04)
[2024-01-06] MEDS: DECADRON 4 MG PO (08:04)
[2024-01-06] MEDS: BACTROBAN 2% OINTMENT 1 APPLIC NASAL (08:04)
--- NOTE | 2024-01-06 08:11 | CM ---
Reviewed chart and held rounds with PT, OT and nursing. Patient admitted as planned for elective R TKR. Met with patient and her daughter, Greta, at bedside. Confirmed information previously obtained for assessment. Also discussed discharge plans.
The plan is for patient to return home eat discharge. Her daughter will be staying with her initially. Patient will go directly to outpatient PT and will come to . She has an appointment scheduled for Wednesday, 01/06.
Patient has a rolling walker and cane.
Patient's daughter will be present for therapy this morning.
[2024-01-06 09:20] VITALS: BP 143/81; PULSE 78; O2SAT 100
--- NOTE | 2024-01-06 10:20 | W.PN.ORTHO ---
Today's Communication / Plan
-
d/c
Assessment
.
Distal Motor Intact: Yes
Dressing:
Clean, dry and intact.
Plan
.
Surgery / Date: Jj Munson 01/05/24
DVT Prophylaxis: Aspirin
Activity:
Out of bed.
PT/OT
Discharge Plan: Home w/ Outpatient PT
Subjective
.
.:
Patient resting comfortably.
Vital Signs and Labs
.
Vital Signs and Labs:
Lab Results
12/23/23 12:44
12/23/23 12:44
Temp Pulse Resp BP Pulse Ox
97.4 F 61 16 154/78 97
01/06/24 07:37 01/06/24 07:37 01/06/24 07:37 01/06/24 07:37 01/06/24 07:37
Non-invasive Hgb result: 10.9
Physical Exam
-
HEENT: No pallor, cyanosis, or jaundice. Throat clear.
NECK: Supple. No JVD.
RESPIRATORY: Lungs clear to auscultation.
CVS: S1, S2 normal. RRR.� No murmur, rub or gallop.
ABDOMEN: Soft, non-tender. No distension. BS+/normal.
EXTREMITIES: strength equal, no calf pain with palpation
VARNISHER PLASTICOATER: AOx3. No focal deficits. spinning frame tender grossly intact
[2024-01-06 10:30] VITALS: BP 119/73
[2024-01-06 10:35] VITALS: BP 119/73
== END 2024-01-06 11:20 | disposition home or self-care (01) | DRG 470 ==
LOC: 2 SOUTH 07:59
PROVIDERS: ADMITTING PHYSICIAN Orthopaedic Surgery; FAMILY PHYSICIAN Family Medicine
PROC: 0SRD0J9 Replacement of Left Knee Joint with Synthetic Substitute, Cemented, Open Approach (ICD-10-PCS; 2024-01-05)
DX: M17.12 Unilateral primary osteoarthritis, left knee (principal); I10 Essential (primary) hypertension; E78.2 Mixed hyperlipidemia; R26.2 Difficulty in walking, not elsewhere classified; Z88.5 Allergy status to narcotic agent; Z91.040 Latex allergy status; Z96.643 Presence of artificial hip joint, bilateral
CPT/HCPCS: 36415; 73560; 80053; 83036; 85027; 87070; 93005; 97110; 97116; 97162; 97166; 97530; 97535; C1713; C1776

== ENCOUNTER → 2024-01-19 11:15 | Outpatient (REF) | payer MEDICARE, BC, SELFPAY | LOC: RAD 11:15 | PROVIDERS: ATTENDING PHYSICIAN Physician Assistant; FAMILY PHYSICIAN Family Medicine | DX: M79.662 Pain in left lower leg (principal) | CPT/HCPCS: 93971 ==

== ENCOUNTER 2024-02-04 12:52 | Outpatient (RCR) | payer MEDICARE, BC, SELFPAY | END 2024-02-04 23:59 | disposition home or self-care (01) | LOC: RPT 12:52 | PROVIDERS: ATTENDING PHYSICIAN Orthopaedic Surgery; FAMILY PHYSICIAN Family Medicine | DX: Z73.6 Limitation of activities due to disability (principal); Z96.652 Presence of left artificial knee joint; R26.89 Other abnormalities of gait and mobility | CPT/HCPCS: 97010; 97110; 97162 ==

== ENCOUNTER 2024-02-22 14:49 | Outpatient (RCR) | payer MEDICARE, BC, SELFPAY | END 2024-02-22 16:00 | disposition home or self-care (01) | LOC: RPT 14:49 | PROVIDERS: ATTENDING PHYSICIAN Orthopaedic Surgery; FAMILY PHYSICIAN Family Medicine | DX: Z47.1 Aftercare following joint replacement surgery (principal); Z73.6 Limitation of activities due to disability; R26.89 Other abnormalities of gait and mobility; M62.81 Muscle weakness (generalized); M25.562 Pain in left knee; Z96.652 Presence of left artificial knee joint | CPT/HCPCS: 97010; 97110 ==

== ENCOUNTER 2024-06-14 08:50 | Day surgery (SDC) | payer MEDICARE, BC, SELFPAY ==
[2024-05-30 11:05] VITALS: BMI 25.7
[2024-05-30 11:30] LABS: Hematocrit 37.4 % (37.0-47.0); Hemoglobin 12.3 g/dL (12.0-16.0); Mean Corp Hgb Conc. 32.9 g/dL (33.0-37.0); Mean Corpuscular Hgb 31.6 pg (27.0-31.0); Mean Corpuscular Volume 96.1 fL (81.0-99.0); Mean Platelet Volume 8.9 fL (7.4-10.4); Platelet Count 230 10^3/uL (130-400); Red Blood Cell Count 3.89 10^6/uL (4.20-5.40); Red Cell Dist. Width 12.7 % (11.5-14.5); White Blood Cell Count 5.4 10^3/uL (4.8-10.8)
[2024-05-30 11:52] LABS: ALT (SGPT) 19 U/L (0-35); AST (SGOT) 32 U/L (14-36); Albumin 4.1 g/dl (3.5-5.0); Alkaline Phosphatase 128 U/L (38-126); Blood Urea Nitrogen 15 mg/dl (7-17); Calcium 9.6 mg/dl (8.4-10.2); Carbon Dioxide 29 mmol/L (22-30); Chloride 100 mmol/L (98-107); Estimated Creatinine Clearance 51 ml/min; Glucose 104 mg/dl (70-99); Potassium 4.4 mmol/L (3.5-5.1); Sodium 137 mmol/L (135-145); Total Bilirubin 0.5 mg/dl (0.2-1.3); Total Protein 6.9 g/dl (6.3-8.2); eGFR > 60.00
[2024-05-30 14:34] LABS: Glycohemoglobin (HgbA1c) 5.7 % (4.0-5.6)
[2024-06-06 11:21] VITALS: BMI 25.7
[2024-06-14] VITALS (28 sets, daily range): BP systolic 124–181; BP diastolic 73–108; PULSE 64; BMI 25.7
--- NOTE | 2024-06-14 08:45 | W.PN.UPDATE ---
Update Note
Progress Note Update
R TKA Dr. Munson 06/14/24
DVT ppx ASA
Pain control. Patient declines any controlled opioid.
Postoperative pain management have included celecoxib with brief
prednisone taper.
Hx Postoperative leg edema occurring POD#5, questionably from steroid.
However, this was discontinued after day three. Have advised TEDs
as well as leg elevation and to purchase plasma flow venous
compression device to mobilize fluid. In the event this reoccurs,
Losartan could be placed on hold in lieu of Lasix.
[2024-06-14] MEDS: NORMOSOL-R/PLASMALYTE-A 1000 IV ×2 (09:34→14:07)
[2024-06-14] MEDS: CELEBREX 200 MG PO (09:34)
[2024-06-14] MEDS: TYLENOL 650 MG PO ×2 (09:34→20:58)
[2024-06-14] MEDS: ROXICODONE 5 MG PO (13:27)
[2024-06-14] MEDS: TYLENOL PO (16:57)
[2024-06-14] MEDS: ASPIRIN 325 MG PO (17:02)
[2024-06-14] MEDS: ANCEF 5 IV (17:44)
--- NOTE | 2024-06-14 20:00 | PTCARENOTE ---
Pt arrived on 2S at 19:50 post-op RTKA, daughter Greta with pt. PACU nurse reports the pt's dressing was statured, PACU nurse TT PA was told it was ok to change surgical dressing, which she changed. Pt's PMH HTN, Arthritis, fxs, OA, Osteoporosis,
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 Past surgeries b/l hips, appendectomy, b/l cataracts, b/l wrists, LTKA. Pt AOx3, surgerical dressing intact with drainage present, bed in a low position, call light in
reach, care ongoing.
[2024-06-14] MEDS: BACTROBAN 2% OINTMENT 1 APPLIC NASAL (20:57)
[2024-06-14] MEDS: DECADRON 4 MG IV (20:58)
[2024-06-14] MEDS: COLACE PO (20:58)
[2024-06-14] MEDS: SENOKOT PO (20:58)
[2024-06-14] MEDS: TORADOL 15 MG IV (20:59)
[2024-06-15] MEDS: TYLENOL 650 MG PO ×4 (00:43→12:13)
[2024-06-15] MEDS: ANCEF 5 IV (01:02)
[2024-06-15 03:20] VITALS: BP 146/75
[2024-06-15 08:05] VITALS: BP 142/78
[2024-06-15] MEDS: BACTROBAN 2% OINTMENT 1 APPLIC NASAL (08:42)
[2024-06-15] MEDS: ASPIRIN 325 MG PO (08:42)
[2024-06-15] MEDS: SENOKOT 17.2 MG PO (08:42)
[2024-06-15] MEDS: TORADOL 15 MG IV (08:43)
[2024-06-15] MEDS: COLACE 100 MG PO (08:43)
[2024-06-15] MEDS: DECADRON 4 MG IV (08:44)
[2024-06-15] MEDS: FLUSH (NSS) 3 FLUSH IV (08:44)
[2024-06-15] MEDS: CYKLOKAPRON 1300 MG PO (10:40)
--- NOTE | 2024-06-15 11:05 | W.PN.ORTHO ---
Today's Communication / Plan
-
d/c after incision addressed
Assessment
.
Distal Motor Intact: Yes
Dressing:
Clean, dry and intact.
Assessment:
Incisional drainage-bandage changed x1-+ TXA and possible melinda in 2 areas of active drainage--have reached out to surgeon--apply light pressure dressing-no hemodynamic compromise-hgb stable
Pain control. Patient declines any controlled opioid.
Postoperative pain management have included celecoxib with brief
prednisone taper.
Hx Postoperative leg edema occurring POD#5, questionably from steroid.
However, this was discontinued after day three. Have advised TEDs
as well as leg elevation and to purchase plasma flow venous
compression device to mobilize fluid. In the event this reoccurs,
Losartan could be placed on hold in lieu of Lasix.
Plan
.
Surgery / Date: R TKA Dr. Munson 06/14/24
DVT Prophylaxis: Aspirin
Activity:
Out of bed.
PT/OT
Discharge Plan: Home w/ Outpatient PT
Subjective
.
.:
Patient resting comfortably.
Vital Signs and Labs
.
Vital Signs and Labs:
Lab Results
05/30/24 10:48
05/30/24 10:48
Temp Pulse Resp BP Pulse Ox
97.7 F 66 16 142/78 97
06/15/24 08:05 06/15/24 08:05 06/15/24 08:05 06/15/24 08:05 06/15/24 08:39
Non-invasive Hgb result: 11.1
Physical Exam
-
HEENT: No pallor, cyanosis, or jaundice. Throat clear.
NECK: Supple. No JVD.
RESPIRATORY: Lungs clear to auscultation.
CVS: S1, S2 normal. RRR.� No murmur, rub or gallop.
ABDOMEN: Soft, non-tender. No distension. BS+/normal.
EXTREMITIES: strength equal, no calf pain with palpation-aquacell drainage noted
MANAGER STRATEGIC PARTNERSHIPS: AOx3. No focal deficits. research laboratory manager grossly intact
--- NOTE | 2024-06-15 12:34 | W.DS.TRANS ---
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
-
Discharge Instructions:
Sleep Apnea Risk Low
Discharge Diagnosis/Procedures R TKA Dr. Munson 06/14/24
Diet As tolerated
Activity With Walker
Driving Restrictions No driving
Bathing Restrictions OK to Shower
Other Services PT
Instructions:
Stand-Alone Forms: Total Hip/Knee Replacement D/C
Changes to Home Medications: Yes
Discharge Medications:
DC Medications w/original date entered in [facility]
carvedilol 3.125 mg tablet 3.125 mg PO BID Blood Pressure 09/12/23
losartan 50 mg tablet 50 mg PO DAILY Blood Pressure 09/12/23
Anthromax 1 cap PO DAILY Supplement 12/29/23
Bone Restore 1 cap PO DAILY Supplement 12/29/23
CoQ-10 1 cap PO DAILY Supplement 12/29/23
Multivitamin Gummies 1 gum PO DAILY Supplement 12/29/23
[place] 3 1 cap PO DAILY Supplement 12/29/23
Vitamin B-12 1 cap PO DAILY Supplement 12/29/23
Vitamin D3 1 cap PO DAILY Supplement 12/29/23
amoxicillin 500 mg capsule 2,000 mg PO .1HR BEFORE DENTAL Infection 12/29/23
calcium 1 cap PO DAILY Supplement 12/29/23
magnesium 1 cap PO DAILY Supplement 12/29/23
celecoxib 200 mg capsule 200 mg PO DAILY anti-inflammatory #14 caps 05/30/24
famotidine 20 mg tablet 20 mg PO HS GI prophylaxis #30 tabs 05/30/24
mupirocin 2 % topical ointment 1 applic topical BID infection prevention #1 tube 05/30/24
prednisone 10 mg tablet 40 mg (4 x 10 mg) PO TAPER #10 tabs 05/30/24
aspirin 81 mg capsule 81 mg PO BID Blood clot prevention/tx #1 cap 06/15/24
docusate sodium 100 mg capsule (Colace) 100 mg PO BID stool softner #1 cap 06/15/24
magnesium hydroxide 400 mg/5 mL oral suspension (Milk of Magnesia) 30 ml PO HS PRN Constipation #1 mL 06/15/24
sennosides 8.6 mg tablet (Senokot) 17.2 mg (2 x 8.6 mg) PO BID laxative #2 tabs 06/15/24
Home Medication Changes
celecoxib 200 mg capsule 200 mg PO DAILY anti-inflammatory #14 caps 05/30/24
famotidine 20 mg tablet 20 mg PO HS GI prophylaxis #30 tabs 05/30/24
mupirocin 2 % topical ointment 1 applic topical BID infection prevention #1 tube 05/30/24
prednisone 10 mg tablet 40 mg (4 x 10 mg) PO TAPER #10 tabs 05/30/24
aspirin 81 mg capsule 81 mg PO BID Blood clot prevention/tx #1 cap 06/15/24
docusate sodium 100 mg capsule (Colace) 100 mg PO BID stool softner #1 cap 06/15/24
magnesium hydroxide 400 mg/5 mL oral suspension (Milk of Magnesia) 30 ml PO HS PRN Constipation #1 mL 06/15/24
sennosides 8.6 mg tablet (Senokot) 17.2 mg (2 x 8.6 mg) PO BID laxative #2 tabs 06/15/24
Pending Results: No
[2024-06-15 13:15] VITALS: BP 131/83; PULSE 72
--- NOTE | 2024-06-15 13:21 | CM ---
Reviewed the chart notes and spoke with the patient and her daughter at the bedside. Patient resides alone in a two story home with two steps to enter. The patient has a completed first floor bedroom and bath on the first level. The patient has a
rolling walker, cane, and shower rails. The patient confirmed her pharmacy of choice is [facility] and PCP is Dr. Kenny. The patient has an outpatient appointment with [facility] on Wednesday. Daughter to provide
transportation home today and to physical therapy. The patient's daughter lives one minute from the patient's home. CM continues to be available to patient/family and is monitoring medical plan for needs at discharge.
Plan: Discharge to home today with outpatient therapy follow-up.
[2024-06-15] MEDS: TYLENOL PO (15:16)
[2024-06-15 15:20] VITALS: BP 140/72
== END 2024-06-15 16:25 | disposition home or self-care (01) ==
LOC: SDS 08:50
PROVIDERS: ATTENDING PHYSICIAN Orthopaedic Surgery; FAMILY PHYSICIAN Family Medicine; OTHER PHYSICIAN Physician Assistant Medical
DX: M17.11 Unilateral primary osteoarthritis, right knee (principal)
CPT/HCPCS: 27447; 36415; 73560; 80053; 83036; 85027; 87070; 93005; 97110; 97116; 97162; 97165; 97530; C1713; C1776